=== PATIENT | female | born 1970 | race Caucasian/White ===

== ENCOUNTER 2016-11-12 20:36 | Emergency (ER) | payer MEDICARE, MEDICAID ==
[~2016-11-12] VITALS: Ht 162.6 cm; Wt 68.0 kg
[2016-11-12] MEDS ORDERED: LEVO175T2 PO (20:52)
[2016-11-12] MEDS ORDERED: VITA100066 PO (20:52)
[2016-11-12 21:37] LABS: BASO % 0.4 % (0.0-1.0); EOS # 0.2 K/mm3 (0.0-0.50); EOS % 1.5 % (0.0-3.0); LARGE UNSTAINED CELL # 0.2 K/mm3 (0.0-0.4); LARGE UNSTAINED CELL % 1.7 % (0.0-4.0); LYMPH % 17.2 % (24.0-44.0); MEAN CORPUSCULAR HEMOGLOBIN 31.2 pg (27.0-33.0); MEAN CORPUSCULAR VOLUME 91.8 fl (80.0-96.0); MONO # 0.7 K/mm3 (0.0-0.8); NEUTROPHILS # 8.3 K/mm3 (1.8-7.7); NEUTROPHILS % 73.2 % (36.0-66.0); PLATELET COUNT, AUTOMATED 255 k/mm3 (150-450); RED CELL DISTRIBUTION WIDTH 12.3 % (11.5-14.5); WHITE BLOOD COUNT 11.3 K/mm3 (4.0-10.0)
[2016-11-12 21:58] LABS: ANION GAP 6 MEQ/L (8-16); BLOOD UREA NITROGEN 9 MG/DL (7-18); CALCIUM LEVEL 7.8 MG/DL (8.5-10.1); CARBON DIOXIDE LEVEL 28 MEQ/L (21-32); CHLORIDE LEVEL 105 MEQ/L (98-107); GLOMERULAR FILTRATION RATE > 60.0 (>58); GLUCOSE, FASTING 91 MG/DL (70-105); POTASSIUM SERUM 3.9 MEQ/L (3.5-5.1); SODIUM LEVEL 139 MEQ/L (136-145)
[2016-11-12 22:20] VITALS: BP 111/61
== END 2016-11-12 22:31 | disposition home or self-care (01) ==
LOC: EDBD 20:36 → M ED 21:40
DX: E16.2 Hypoglycemia, unspecified (principal); Z98.84 Bariatric surgery status; E03.9 Hypothyroidism, unspecified

== ENCOUNTER → 2017-05-15 | Outpatient (CLI) | payer MEDICARE, MEDICAID ==
[~2017-05-15] MED LIST: LEVO175T2 PO; VITA100066 PO
[2017-05-15 14:00] LABS: FREE T4 1.2 NG/DL (0.76-1.46)
== END ==
LOC: M SMT 10:00
PROVIDERS: ATTEND Internal Medicine Endocrinology, Diabetes & Metabolism
DX: E03.9 Hypothyroidism, unspecified (principal)

== ENCOUNTER → 2017-12-03 | Outpatient (CLI) | payer MEDICARE, MEDICAID ==
[~2017-12-03] MED LIST changes: +E-Z-GAS II EFFERVESCENT PACKET (SODIUM BICARB./CITRIC ACID/SIMETHICONE) As Ordered; +E-Z-HD 98% w/w 340GM SUSP BTL As Ordered; +E-Z-PAQUE 96% w/w SUSP 176GM BTL As Ordered; -LEVO175T2 PO; -VITA100066 PO
== END ==
LOC: M RAD 10:43
DX: R10.13 Epigastric pain (principal); E66.3 Overweight; Z98.84 Bariatric surgery status
CPT/HCPCS: 74220

== ENCOUNTER 2018-07-30 09:06 | Day surgery (SDC) | payer MEDICARE, MEDICAID ==
[~2018-07-30] VITALS: Ht 162.6 cm; Wt 77.6 kg
[~2018-07-30 09:06] MED LIST changes: +ADV250INH INH; +ASCO500T PO; +AZEL1SPR3; +CALC-176 PO; +CETI10TA PO; -E-Z-GAS II EFFERVESCENT PACKET (SODIUM BICARB./CITRIC ACID/SIMETHICONE) As Ordered; -E-Z-HD 98% w/w 340GM SUSP BTL As Ordered; -E-Z-PAQUE 96% w/w SUSP 176GM BTL As Ordered; +FERR325T16 PO; +LEVO100T5 PO; +LEVO175T2 PO; +MONT10TA2 PO; +NS 1,000 ML IV ONE; +OMEP20CA3 PO; +PROAAER10 INH; +VITA100066 PO; +VITA500T53 PO
[2018-07-30] MEDS ORDERED: LIDOCAINE 2% INJ 100 MG/5 ML SDV (FOR ANES.) As Ordered ONE (09:15)
[2018-07-30] MEDS ORDERED: PROPOFOL 200 MG/20 ML VIAL As Ordered ONE ×2 (09:15→11:30)
[2018-07-30] MEDS ORDERED: fentaNYL 100 MCG/2 ML INJECTION (J3010) As Ordered ONE (10:28)
--- NOTE | 2018-07-30 11:45 | ROOR ---
Patient Name: Riya Holley Procedure Date: 07/30/2018 10:42 AM Date of : 1970 Age: 48 Room: [facility] Gender: Female Note Status: Finalized Procedure: Upper GI endoscopy Indications: Follow-up of gastric ulcer, Abnormal CT of the GI tract Providers: Doug Cordova MD Referring MD: DUSTIN WILKS DO Requesting Provider: Medicines: Monitored Anesthesia Care Complications: No immediate complications. Procedure: Pre-Anesthesia Assessment: - Prior to the procedure, a History and Physical was performed, and patient medications and allergies were reviewed. The patient is competent. The risks and benefits of the procedure and the sedation options and risks were discussed with the patient. All questions were answered and informed consent was obtained. Patient identification and proposed procedure were verified by the physician, the nurse and the anesthesiologist in the procedure room. Mental Status Examination: alert and oriented. Airway Examination: normal oropharyngeal airway and neck mobility. Respiratory Examination: clear to auscultation. CV Examination: normal. Prophylactic Antibiotics: The patient does not require prophylactic antibiotics. Prior Anticoagulants: The patient has taken no previous anticoagulant or antiplatelet agents. ASA Grade Assessment: II - A patient with mild systemic disease. After reviewing the risks and benefits, the patient was deemed in satisfactory condition to undergo the procedure. The anesthesia plan was to use monitored anesthesia care (MAC). Immediately prior to administration of medications, the patient was re-assessed for adequacy to receive sedatives. The heart rate, respiratory rate, oxygen saturations, blood pressure, adequacy of pulmonary ventilation, and response to care were monitored throughout the procedure. The physical status of the patient was re-assessed after the procedure. The Endoscope was introduced through the mouth, and advanced to the second part of duodenum. The upper GI endoscopy was accomplished without difficulty. The patient tolerated the procedure well. Findings: The Z-line was regular and was found 39 cm from the incisors. Diffuse mild inflammation characterized by erythema and granularity was found in the gastric fundus. Biopsies were taken with a cold forceps for Helicobacter pylori testing. Verification of patient identification for the specimen was done by the physician and nurse using the patient's name, date and medical record number. Estimated blood loss was minimal. Evidence of a gastric bypass was found. A gastric pouch with a medium size was found. The staple line appeared intact. The gastrojejunal anastomosis was characterized by healthy appearing mucosa. This was traversed. The jejunojejunal anastomosis was characterized by healthy appearing mucosa. The jdoukcut-pe-trmpxto limb was not examined as it could not be found. The examined jejunum was normal. Biopsies for histology were taken with a cold forceps for evaluation of celiac disease. Impression: - Z-line regular, 39 cm from the incisors. - Gastritis. Biopsied. - Gastric bypass with a medium-sized pouch and intact staple line. Gastrojejunal anastomosis characterized by healthy appearing mucosa. - Normal examined jejunum. Biopsied. Recommendation: - Patient has a contact number available for emergencies. The signs and symptoms of potential delayed complications were discussed with the patient. Return to normal activities tomorrow. Written discharge instructions were provided to the patient. - Resume previous diet. - Continue present medications. - Await pathology results. - Based on the biopsy results you will receive a phone call from GI clinic in 2-3 weeks to review the pathology results AND/OR your results will be faxed to your Primary care physician. - Return to primary care physician. Doug Cordova MD Doug Cordova MD 07/30/2018 11:44:45 AM This report has been signed electronically. Number of Addenda: 0 Note Initiated On: 07/30/2018 10:42 AM Estimated Blood Loss: Estimated blood loss was minimal.
--- NOTE | 2018-07-30 11:47 | ROOR ---
Patient Name: Riya Holley Procedure Date: 07/30/2018 10:42 AM Date of : 1970 Age: 48 Room: [facility] Gender: Female Note Status: Finalized Procedure: Colonoscopy Indications: Abnormal CT of the GI tract Providers: Doug Cordova MD Referring MD: DUSTIN WILKS DO Requesting Provider: Medicines: Monitored Anesthesia Care Complications: No immediate complications. Procedure: Pre-Anesthesia Assessment: - Prior to the procedure, a History and Physical was performed, and patient medications and allergies were reviewed. The patient is competent. The risks and benefits of the procedure and the sedation options and risks were discussed with the patient. All questions were answered and informed consent was obtained. Patient identification and proposed procedure were verified by the physician, the nurse and the anesthesiologist in the procedure room. Mental Status Examination: alert and oriented. Airway Examination: normal oropharyngeal airway and neck mobility. Respiratory Examination: clear to auscultation. CV Examination: normal. Prophylactic Antibiotics: The patient does not require prophylactic antibiotics. Prior Anticoagulants: The patient has taken no previous anticoagulant or antiplatelet agents. ASA Grade Assessment: II - A patient with mild systemic disease. After reviewing the risks and benefits, the patient was deemed in satisfactory condition to undergo the procedure. The anesthesia plan was to use monitored anesthesia care (MAC). Immediately prior to administration of medications, the patient was re-assessed for adequacy to receive sedatives. The heart rate, respiratory rate, oxygen saturations, blood pressure, adequacy of pulmonary ventilation, and response to care were monitored throughout the procedure. The physical status of the patient was re-assessed after the procedure. The Colonoscope was introduced through the anus and advanced to the terminal ileum, with identification of the appendiceal orifice and IC valve. The colonoscopy was performed without difficulty. The patient tolerated the procedure well. The quality of the bowel preparation was good. The terminal ileum, ileocecal valve, appendiceal orifice, and rectum were photographed. Scope insertion time was 5 minutes. Scope withdrawal time was 10 minutes. The total duration of the procedure was 15 minutes. Findings: The perianal and digital rectal examinations were normal. The terminal ileum appeared normal. A 4 mm polyp was found in the transverse colon. The polyp was sessile. The polyp was removed with a cold biopsy forceps. Resection and retrieval were complete. Verification of patient identification for the specimen was done by the physician and nurse using the patient's name, date and medical record number. Estimated blood loss was minimal. Two sessile polyps were found in the rectum. The polyps were 3 to 4 mm in size. These polyps were removed with a cold biopsy forceps. Resection and retrieval were complete. Non-bleeding external and internal hemorrhoids were found during retroflexion. The hemorrhoids were medium-sized. Impression: - The examined portion of the ileum was normal. - One 4 mm polyp in the transverse colon, removed with a cold biopsy forceps. Resected and retrieved. - Two 3 to 4 mm polyps in the rectum, removed with a cold biopsy forceps. Resected and retrieved. - Non-bleeding external and internal hemorrhoids. Recommendation: - Patient has a contact number available for emergencies. The signs and symptoms of potential delayed complications were discussed with the patient. Return to normal activities tomorrow. Written discharge instructions were provided to the patient. - Resume previous diet. - Continue present medications. - Await pathology results. - Repeat colonoscopy in 5-10 years for surveillance based on pathology results. - Based on the biopsy results you will receive a phone call from GI clinic in 2-3 weeks to review the pathology results AND/OR your results will be faxed to your Primary care physician. - Return to primary care physician. Doug Cordova MD Doug Cordova MD 07/30/2018 11:47:11 AM This report has been signed electronically. Number of Addenda: 0 Note Initiated On: 07/30/2018 10:42 AM Estimated Blood Loss: Estimated blood loss was minimal.
[2018-07-30 11:55] VITALS: BP 134/84
[2018-08-08] MEDS ORDERED: SUCR1SS PO (08:40)
== END 2018-07-30 12:07 | disposition home or self-care (01) ==
LOC: M OPP 09:06
PROVIDERS: ATTEND Internal Medicine Gastroenterology
DX: K64.8 Other hemorrhoids (principal); D12.3 Benign neoplasm of transverse colon; K62.1 Rectal polyp; K29.70 Gastritis, unspecified, without bleeding; K25.9 Gastric ulcer, unspecified as acute or chronic, without hemorrhage or perforation; Z98.84 Bariatric surgery status; J45.909 Unspecified asthma, uncomplicated; E03.9 Hypothyroidism, unspecified; Z79.899 Other long term (current) drug therapy
CPT/HCPCS: 43239; 45380; 88305; J3010

== ENCOUNTER → 2020-01-12 | Outpatient (CLI) | payer MEDICARE, MEDICAID ==
[~2020-01-12] MED LIST changes: +E-Z-GAS II EFFERVESCENT PACKET (SODIUM BICARB./CITRIC ACID/SIMETHICONE) As Ordered ONE; +E-Z-HD 98% w/w 340GM SUSP BTL As Ordered ONE; +E-Z-PAQUE 96% w/w SUSP 176GM BTL As Ordered ONE; -MONT10TA2 PO; +MONT10TA4 PO; -NS 1,000 ML IV ONE; +OMEP1CAP73 PO; -OMEP20CA3 PO; +SUCR1SS PO; +VITA500T17 PO; -VITA500T53 PO
--- NOTE | 2020-01-12 19:38 | REP ---
Examination Requested: Upper G.I. Series With KUB Reason For Exam: gastroesophageal reflux disease Upper GI Air Contrast The procedure was performed by KANDI Geronimo, under the direct supervision of Dr. Curiel. The images were reviewed with Dr. Curiel. 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 The intestinal gas pattern appears normal. Again noted is severe kyphoscoliosis. Liquid barium was given in the erect position as well as liquid barium in the prone oblique position in order to perform a double contrast upper GI examination. The oral and pharyngeal stages of deglutition were unremarkable. Esophageal transport is efficient and there is no esophagitis, stricture, or mucosal ring noted. There is no hiatal hernia. Gastroesophageal reflux was not visualized throughout the course of the exam. The stomach demonstrates postsurgical changes consistent with the patient's history of Lissa-en-Y gastric surgery. There is free flow of contrast through the anastomosis. There is no evidence of stricture or obstruction. There is no evidence of gastritis, neoplasm, or ulcer disease. The visualized portion of the proximal small bowel appears normal in course and caliber. Impression: 1. Unremarkable upper GI study in a patient who is status post Lissa-en-Y gastric surgery 7 years ago. 0.2 minutes of fluoroscopy time was utilized for this procedure. Some fluoroscopic images are performed with last image hold technology. These images require no additional radiation. Reviewed by KANDI Mccurdy 01/12/2020 04:52 P Electronically Signed by Kelvin Curiel MD 01/12/2020 07:29 P
== END ==
LOC: M RAD 08:13
PROVIDERS: ATTEND Surgery
DX: K21.9 Gastro-esophageal reflux disease without esophagitis (principal)

== ENCOUNTER → 2020-03-22 | Outpatient (CLI) | payer MEDICARE, MEDICAID ==
[~2020-03-22] MED LIST changes: -E-Z-GAS II EFFERVESCENT PACKET (SODIUM BICARB./CITRIC ACID/SIMETHICONE) As Ordered ONE; -E-Z-HD 98% w/w 340GM SUSP BTL As Ordered ONE; -E-Z-PAQUE 96% w/w SUSP 176GM BTL As Ordered ONE
[2020-03-22 14:22] LABS: HEMATOCRIT 41.2 % (36.0-47.0); HEMOGLOBIN 13.4 g/dl (12.0-15.5); MEAN CORPUSCULAR HEMOGLOBIN 30.4 pg (27.0-33.0); MEAN CORPUSCULAR HGB CONC 32.5 g/dl (32.0-36.5); MEAN CORPUSCULAR VOLUME 93.4 fl (80.0-96.0); PLATELET COUNT, AUTOMATED 246 10^3/uL (150-450); RED BLOOD COUNT 4.41 10^6/uL (4.00-5.40); WHITE BLOOD COUNT 5.7 10^3/uL (4.0-10.0)
[2020-03-22 14:56] LABS: FOLATE 17.1 NG/ML (>5.4); TOTAL 25(OH) VITAMIN D 26.9 NG/ML (30.0-100.0)
== END ==
LOC: M WUC 09:47
PROVIDERS: ATTEND Surgery
DX: R63.5 Abnormal weight gain (principal); Z98.84 Bariatric surgery status; Z79.899 Other long term (current) drug therapy

== ENCOUNTER → 2020-03-22 | Outpatient (CLI) | payer MEDICARE, MEDICAID ==
[2020-03-22 14:47] LABS: BLOOD UREA NITROGEN 9 MG/DL (7-18); CALCIUM LEVEL 9.1 MG/DL (8.5-10.1); CARBON DIOXIDE LEVEL 27 MEQ/L (21-32); CHLORIDE LEVEL 107 MEQ/L (98-107); FREE T4 1.24 NG/DL (0.76-1.46); GLOMERULAR FILTRATION RATE > 60.0 (>58); GLUCOSE, FASTING 57 MG/DL (70-100); POTASSIUM SERUM 4.2 MEQ/L (3.5-5.1); SODIUM LEVEL 141 MEQ/L (136-145); THYROID STIMULATING HORMONE 0.307 uIU/ML (0.358-3.740)
== END ==
LOC: M WUC 09:43
PROVIDERS: ATTEND Internal Medicine
DX: E03.8 Other specified hypothyroidism (principal); E06.3 Autoimmune thyroiditis

== ENCOUNTER → 2020-04-14 | Outpatient (CLI) | payer MEDICARE, MEDICAID ==
[2020-04-14 12:56] LABS: FREE T4 1.27 NG/DL (0.76-1.46); THYROID STIMULATING HORMONE 0.722 uIU/ML (0.358-3.740)
== END ==
LOC: M WUC 09:33
PROVIDERS: ATTEND Physician Assistant
DX: E03.8 Other specified hypothyroidism (principal); E06.3 Autoimmune thyroiditis

== ENCOUNTER 2020-05-20 07:10 | Outpatient (RCR) | payer MEDICARE, MEDICAID | END 2020-05-22 | LOC: M OT 07:10 | PROVIDERS: ATTEND Orthopaedic Surgery | DX: S62.645A Nondisplaced fracture of proximal phalanx of left ring finger, initial encounter for closed fracture (principal); X58.XXXA Exposure to other specified factors, initial encounter; Y92.89 Other specified places as the place of occurrence of the external cause ==

== ENCOUNTER 2020-06-15 08:49 | Outpatient (RCR) | payer MEDICARE, MEDICAID ==
[~2020-06-15 08:49] MED LIST changes: -MONT10TA4 PO; +MONT5TAB2 PO
== END 2020-06-21 ==
LOC: M OT 08:49
PROVIDERS: ATTEND Orthopaedic Surgery
DX: S62.645D Nondisplaced fracture of proximal phalanx of left ring finger, subsequent encounter for fracture with routine healing (principal); X58.XXXD Exposure to other specified factors, subsequent encounter; Y92.9 Unspecified place or not applicable

== ENCOUNTER 2020-07-06 08:14 | Outpatient (RCR) | payer MEDICARE, MEDICAID | END 2020-07-22 | LOC: M OT 08:14 | PROVIDERS: ATTEND Orthopaedic Surgery | DX: S62.645D Nondisplaced fracture of proximal phalanx of left ring finger, subsequent encounter for fracture with routine healing (principal) ==

== ENCOUNTER → 2021-05-09 | Outpatient (CLI) | payer MEDICARE, MEDICAID ==
[~2021-05-09] MED LIST changes: +FERR324T21 PO; -FERR325T16 PO; +MONT10TA10 PO; -MONT5TAB2 PO
--- NOTE | 2021-05-09 15:06 | DEXAMM ---
INDICATION: POST BARIATRIC SURGERY SURVEILLANCE. COMPARISON: None. TECHNIQUE: Bone density was measured using dual-energy x-ray absorptiometry (DEXA). FINDINGS: AP SPINE L1-L4 BMD 1.379 g/cm2 Young Adult T-Score 1.5 Age Matched Z-Score 1.8. LT FEMUR, TOTAL BMD 0.906 g/cm2 Young Adult T-Score -0.8 Age Matched Z-Score -0.4. LT NECK BMD 0.905 g/cm2 Young Adult T-Score -1.0 Age Matched Z-Score -0.2. RT FEMUR, TOTAL BMD 0.890 g/cm2 Young Adult T-Score -0.9 Age Matched Z-Score -0.5. RT NECK BMD 0.910 g/cm2 Young Adult T-Score -0.9 Age Matched Z-Score -0.2. IMPRESSION: There is normal bone density of the spine. There is low bone density of the left hip. There is normal bone density of the right hip. FOLLOW-UP: Recommendation for the next bone density exam: 2 years. <Electronically signed by Kelvin Curiel > 05/09/21 [id number]
== END ==
LOC: M WHC 13:14
PROVIDERS: ATTEND Registered Nurse
DX: K28.9 Gastrojejunal ulcer, unspecified as acute or chronic, without hemorrhage or perforation (principal); I10 Essential (primary) hypertension; E66.3 Overweight; K91.2 Postsurgical malabsorption, not elsewhere classified; E03.8 Other specified hypothyroidism; E06.3 Autoimmune thyroiditis; E61.1 Iron deficiency; E55.9 Vitamin D deficiency, unspecified; E53.8 Deficiency of other specified B group vitamins; Z98.84 Bariatric surgery status

== ENCOUNTER → 2021-05-09 | Outpatient (CLI) | payer MEDICARE, MEDICAID ==
[2021-05-09 11:07] LABS: FREE T4 1.3 NG/DL (0.76-1.46); THYROID STIMULATING HORMONE 1.47 uIU/ML (0.358-3.740)
== END ==
LOC: M WUC 08:34
PROVIDERS: ATTEND Physician Assistant
DX: E03.8 Other specified hypothyroidism (principal); E06.3 Autoimmune thyroiditis; K28.9 Gastrojejunal ulcer, unspecified as acute or chronic, without hemorrhage or perforation; I10 Essential (primary) hypertension; E66.3 Overweight; K91.2 Postsurgical malabsorption, not elsewhere classified; E61.1 Iron deficiency; E55.9 Vitamin D deficiency, unspecified; E53.8 Deficiency of other specified B group vitamins; M85.89 Other specified disorders of bone density and structure, multiple sites; Z98.84 Bariatric surgery status

== ENCOUNTER → 2021-07-27 | Outpatient (CLI) | payer MEDICARE ==
[2021-07-27 16:11] LABS: ALBUMIN 3.6 GM/DL (3.2-5.2); ALT/SGPT 25 U/L (12-78); BILIRUBIN,TOTAL 0.7 MG/DL (0.2-1.0); BLOOD UREA NITROGEN 12 MG/DL (7-18); CALCIUM LEVEL 9.1 MG/DL (8.5-10.1); CARBON DIOXIDE LEVEL 27 MEQ/L (21-32); CHLORIDE LEVEL 106 MEQ/L (98-107); CREATININE FOR GFR 0.68 MG/DL (0.55-1.30); GLOMERULAR FILTRATION RATE > 60.0 (>58); GLUCOSE, FASTING 97 MG/DL (70-100); POTASSIUM SERUM 4.4 MEQ/L (3.5-5.1); SODIUM LEVEL 140 MEQ/L (136-145); TOTAL PROTEIN 7.2 GM/DL (6.4-8.2)
== END ==
LOC: M PLALAB 13:58
PROVIDERS: ATTEND Registered Nurse
DX: E66.9 Obesity, unspecified (principal); K90.9 Intestinal malabsorption, unspecified; Z98.84 Bariatric surgery status

== ENCOUNTER → 2022-03-31 | Outpatient (CLI) | payer MEDICARE, MEDICAID ==
[~2022-03-31] MED LIST changes: -MONT10TA10 PO; +MONT10TA97 PO
== END ==
LOC: M PLALAB 10:30
PROVIDERS: ATTEND Physician Assistant
DX: E03.8 Other specified hypothyroidism (principal); E06.3 Autoimmune thyroiditis

== ENCOUNTER → 2022-04-25 | Outpatient (CLI) | payer MEDICARE, MEDICAID ==
[2022-04-25 07:58] LABS: BASO # 0.1 10^3/uL (0.0-0.2); BASO % 0.8 % (0.0-1.0); EOS # 0.2 10^3/uL (0.0-0.5); EOS % 3.5 % (0.0-3.0); HEMOGLOBIN 12.5 g/dl (12.0-15.5); LYMPH % 32.4 % (24.0-44.0); MEAN CORPUSCULAR HEMOGLOBIN 29.6 pg (27.0-33.0); MEAN CORPUSCULAR HGB CONC 32.1 g/dl (32.0-36.5); MEAN CORPUSCULAR VOLUME 92.4 fl (80.0-96.0); MONO # 0.6 10^3/uL (0.0-0.8); MONO % 9.1 % (2.0-8.0); NEUTROPHILS # 3.3 10^3/uL (1.5-8.5); PLATELET COUNT, AUTOMATED 252 10^3/uL (150-450); RED BLOOD COUNT 4.22 10^6/uL (4.00-5.40)
[2022-04-25 08:16] LABS: HEMOGLOBIN A1c 5.3 %
[2022-04-25 08:38] LABS: ALBUMIN 3.6 GM/DL (3.2-5.2); ALT/SGPT 27 U/L (12-78); BLOOD UREA NITROGEN 12 MG/DL (7-18); CALCIUM LEVEL 8.7 MG/DL (8.5-10.1); CARBON DIOXIDE LEVEL 32 MEQ/L (21-32); CHLORIDE LEVEL 103 MEQ/L (98-107); CHOLESTEROL LEVEL 145 MG/DL (<200); CHOLESTEROL RISK RATIO 1.907 (<5); CREATININE FOR GFR 0.76 MG/DL (0.55-1.30); FERRITIN 32 NG/ML (8-252); GLOMERULAR FILTRATION RATE > 60.0 (>58); GLUCOSE, FASTING 94 MG/DL (70-100); HDL CHOLESTEROL 76 MG/DL (>40); IRON (FE) 89 UG/DL (50-170); LDL CHOLESTEROL 59 MG/DL (<100); NON-HDL-C 69 MG/DL; PERCENT SATURATION 27.4 % (13.2-45.0); POTASSIUM SERUM 3.9 MEQ/L (3.5-5.1); SODIUM LEVEL 138 MEQ/L (136-145); TOTAL IRON BINDING CAPACITY 325 UG/DL (250-450); TOTAL PROTEIN 7.1 GM/DL (6.4-8.2); TRIGLYCERIDES LEVEL 49 MG/DL (<150)
[2022-04-25 14:15] LABS: TOTAL 25(OH) VITAMIN D 36.4 NG/ML (30.0-100.0)
[2022-04-25 14:16] LABS: VITAMIN B12 LEVEL 314 PG/ML (247-911)
== END ==
LOC: M LAB 07:03
PROVIDERS: ATTEND Registered Nurse
DX: E66.3 Overweight (principal); Z98.84 Bariatric surgery status; Z68.25 Body mass index [BMI] 25.0-25.9, adult

== ENCOUNTER → 2022-11-06 | Outpatient (CLI) | payer MEDICARE, MEDICAID ==
[2022-11-06 10:45] LABS: HEMATOCRIT 38.3 % (36.0-47.0); HEMOGLOBIN 12.4 g/dl (12.0-15.5); MEAN CORPUSCULAR HEMOGLOBIN 30.8 pg (27.0-33.0); MEAN CORPUSCULAR HGB CONC 32.4 g/dl (32.0-36.5); PLATELET COUNT, AUTOMATED 248 10^3/uL (150-450); RED BLOOD COUNT 4.03 10^6/uL (4.00-5.40); WHITE BLOOD COUNT 5.6 10^3/uL (4.0-10.0)
[2022-11-06 11:06] LABS: BLOOD UREA NITROGEN 12 MG/DL (9-23); CARBON DIOXIDE LEVEL 30 MMOL/L (20-31); CHLORIDE LEVEL 108 MMOL/L (98-107); CREATININE FOR GFR 0.67 MG/DL (0.55-1.30); GLOMERULAR FILTRATION RATE > 60.0 (>51); GLUCOSE, FASTING 88 MG/DL (60-100); POTASSIUM SERUM 4.8 MMOL/L (3.5-5.1); SODIUM LEVEL 141 MMOL/L (136-145)
[2022-11-06 12:21] LABS: FREE T4 0.98 NG/DL (0.89-1.76)
== END ==
LOC: M PLALAB 08:33
PROVIDERS: ATTEND Plastic Surgery Surgery of the Hand
DX: M54.07 Panniculitis affecting regions of neck and back, lumbosacral region (principal)

== ENCOUNTER 2022-11-20 05:59 | Observation (INO) | payer MEDICARE, MEDICAID ==
[2022-11-20] VITALS (7 sets, daily range): BP systolic 119–138; BP diastolic 71–75
[~2022-11-20] VITALS: Ht 165.1 cm; Wt 86.4 kg
[~2022-11-20 05:59] MED LIST changes: +PROA1AER2 INH; +VITA100093 PO
[2022-11-20] MEDS ORDERED: LR 1,000 ML IV SCH (06:20)
[2022-11-20] MEDS ORDERED: ceFAZolin SOD 2 GM in IV 1 EA IV ONE (06:45)
[2022-11-20] MEDS ORDERED: HEPARIN SOD (PORCINE) 5000UNITS/ML 1ML VIAL/SYRINGE SQ ONE (06:45)
[2022-11-20] MEDS ORDERED: BUPIVACAINE HCL 0.25% 30ML VIAL As Ordered ONE (07:16)
[2022-11-20] MEDS ORDERED: BUPIVACAINE LIPOSOME/PF 1.3% 20ML VIAL (13.3MG/ML)(EXPAREL) As Ordered ONE (07:17)
[2022-11-20] MEDS ORDERED: GENTAMICIN SULF 80MG/2ML VIAL As Ordered ONE (07:17)
[2022-11-20] MEDS ORDERED: propofoL 200 MG/20 ML VIAL As Ordered ONE (07:19)
[2022-11-20] MEDS ORDERED: LIDOCAINE 2% 100MG/5ML SDV (FOR ANES.) As Ordered ONE (07:19)
[2022-11-20] MEDS ORDERED: fentaNYL 100 MCG/2 ML INJECTION As Ordered ONE (07:19)
[2022-11-20] MEDS ORDERED: MIDAZOLAM INJ 2MG/2ML VIAL As Ordered ONE (07:19)
[2022-11-20] MEDS ORDERED: ROCURONIUM BROMIDE 50MG/5ML VIAL As Ordered ONE ×2 (07:19→08:09)
[2022-11-20] MEDS ORDERED: HYDROmorphone HCL 2MG/ML 1ML VIAL As Ordered ONE (08:09)
[2022-11-20] MEDS ORDERED: ONDANSETRON 4MG 2ML VIAL As Ordered ONE (08:26)
[2022-11-20] MEDS ORDERED: SUGAMMADEX SODIUM 500 MG/5 ML VIAL (BRIDION) As Ordered ONE (08:26)
[2022-11-20] MEDS ORDERED: ACETAMINOPHEN 1000MG 100ML IV BAG As Ordered ONE (08:26)
[2022-11-20] MEDS ORDERED: METOCLOPRAMIDE INJ 10MG/2ML VIAL As Ordered ONE (08:26)
[2022-11-20] MEDS ORDERED: KETOROLAC 60MG 2ML VIAL As Ordered ONE (08:26)
[2022-11-20] MEDS ORDERED: ePHEDrine SULFATE 25 MG/5 ML(5MG/ML) SYRINGE As Ordered ONE (09:01)
[2022-11-20] MEDS ORDERED: ONDANSETRON 4MG 2ML VIAL IV PRN ×2 (10:50→11:00)
[2022-11-20] MEDS ORDERED: oxyCODONE 5MG TAB PO PRN ×2 (10:50→11:00)
[2022-11-20] MEDS ORDERED: fentaNYL 100 MCG/2 ML INJECTION IV PRN (10:50)
[2022-11-20] MEDS ORDERED: HYDROMORPHONE HCL 0.5 MG/ 0.5 ML SYRINGE IV PRN (10:50)
[2022-11-20] MEDS ORDERED: traMADol 50 MG TAB PO PRN (11:00)
[2022-11-20] MEDS ORDERED: ACETAMINOPHEN TAB 650MG DOSE (2X325MG) PO PRN (11:00)
[2022-11-20] MEDS: LR 1,000 ML IV SCH (11:56)
[2022-11-20] MEDS: CETIRIZINE (ZyrTEC) 10 MG TAB PO SCH (11:57)
[2022-11-20] MEDS: CYANOCOBALAMIN 500 MCG TAB PO SCH (11:57)
[2022-11-20] MEDS: LEVOTHYROXINE 100MCG TABLET (0.1MG) PO SCH (11:57)
[2022-11-20] MEDS: ASCORBIC ACID 500 MG TAB PO SCH ×2 (16:13→20:19)
[2022-11-20] MEDS: ceFAZolin SOD 1 GM in D5W MINI-BAG PLUS 50 ML IV SCH (16:13)
[2022-11-20] MEDS: FERROUS GLUCONATE 324 MG TAB PO SCH (20:20)
[2022-11-20] MEDS ORDERED: MONTELUKAST 10 MG TAB PO SCH (21:00)
[2022-11-21] MEDS: ceFAZolin SOD 1 GM in D5W MINI-BAG PLUS 50 ML IV SCH ×2 (00:36→08:00)
[2022-11-21 02:00] VITALS: BP 122/74
[2022-11-21] MEDS: LEVOTHYROXINE 100MCG TABLET (0.1MG) PO SCH (05:29)
[2022-11-21] MEDS: LR 1,000 ML IV SCH (05:32)
[2022-11-21 05:53] VITALS: BP 125/76
[2022-11-21] MEDS: CYANOCOBALAMIN 500 MCG TAB PO SCH (08:24)
[2022-11-21] MEDS: ASCORBIC ACID 500 MG TAB PO SCH (08:24)
[2022-11-21] MEDS: FERROUS GLUCONATE 324 MG TAB PO SCH (08:24)
[2022-11-21] MEDS: CETIRIZINE (ZyrTEC) 10 MG TAB PO SCH (08:24)
[2022-11-21] MEDS ORDERED: TRAM50TA2 PO (10:56)
== END 2022-11-21 13:10 | disposition home health service (06) ==
LOC: M SDC 05:59 → M MS5PR 06:00
PROVIDERS: ADMIT Plastic Surgery Surgery of the Hand; ATTEND Plastic Surgery Surgery of the Hand
DX: M54.07 Panniculitis affecting regions of neck and back, lumbosacral region (principal); Z98.84 Bariatric surgery status; Z79.51 Long term (current) use of inhaled steroids; Z79.899 Other long term (current) drug therapy; J45.909 Unspecified asthma, uncomplicated; E03.9 Hypothyroidism, unspecified; M41.9 Scoliosis, unspecified
CPT/HCPCS: 15830; 15847; 88302; 96365; 96366; C9290; G0378; J0131; J0690; J1100; J1170; J1580; J1885; J2250; J2405; J2765; J3010

== ENCOUNTER → 2024-02-21 | Outpatient (CLI) | payer MEDICARE, MEDICAID ==
[~2024-02-21] MED LIST changes: +TRAM50TA2 PO
[2024-02-21 16:21] LABS: APPEARANCE, URINE CLEAR (CLEAR); BACTERIA, URINE AUTO NEGATIVE (NEGATIVE); BILIRUBIN, URINE AUTO NEGATIVE (NEGATIVE); BLOOD, URINE BLOOD NEGATIVE (NEGATIVE); COLOR, URINE YELLOW (YELLOW); GLUCOSE, URINE (UA) AUTO NEGATIVE (NEGATIVE); KETONE, URINE AUTO NEGATIVE (NEGATIVE); LEUKOCYTE ESTERASE, URINE AUTO NEGATIVE (NEGATIVE); MUCUS, URINE SMALL (NEGATIVE); NITRITE, URINE AUTO NEGATIVE (NEGATIVE); PROTEIN, URINE AUTO NEGATIVE (NEGATIVE); RBC, URINE AUTO 1 /HPF (0-3); SPECIFIC GRAVITY URINE AUTO 1.011 (1.002-1.035); SQUAMOUS EPITHELIAL CELL UR AU 1 /HPF (0-6); UROBILINOGEN, URINE AUTO 0.2 mg/dL (0.0-2.0); WBC, URINE AUTO 1 /HPF (0-3)
[2024-02-21 16:23] LABS: BASO # 0.1 10^3/uL (0.0-0.2); EOS # 0.2 10^3/uL (0.0-0.5); EOS % 3.1 % (0.0-3.0); HEMATOCRIT 39.4 % (36.0-47.0); HEMOGLOBIN 12.6 g/dl (12.0-15.5); LYMPH # 2.7 10^3/uL (1.5-5.0); MEAN CORPUSCULAR HEMOGLOBIN 30.1 pg (27.0-33.0); MONO # 0.6 10^3/uL (0.0-0.8); MONO % 10.3 % (2.0-8.0); NEUTROPHILS # 2.5 10^3/uL (1.5-8.5); NEUTROPHILS % 41.4 % (36.0-66.0); PLATELET COUNT, AUTOMATED 261 10^3/uL (150-450); RED BLOOD COUNT 4.19 10^6/uL (4.00-5.40); WHITE BLOOD COUNT 6.1 10^3/uL (4.0-10.0)
[2024-02-21 16:30] LABS: ALBUMIN 3.8 G/DL (3.2-5.2); ALKALINE PHOSPHATASE 93 U/L (46-116); ALT/SGPT 26 U/L (7.0-40); AST/SGOT 21 U/L (<34); BLOOD UREA NITROGEN 8 MG/DL (9-23); CALCIUM LEVEL 9.2 MG/DL (8.5-10.1); CARBON DIOXIDE LEVEL 30 MMOL/L (20-31); CHLORIDE LEVEL 105 MMOL/L (98-107); CREATININE FOR GFR 0.62 MG/DL (0.55-1.30); GLOMERULAR FILTRATION RATE > 60.0 (>51); GLUCOSE, FASTING 121 MG/DL (60-100); POTASSIUM SERUM 3.6 MMOL/L (3.5-5.1); SODIUM LEVEL 140 MMOL/L (136-145); TOTAL PROTEIN 7.1 G/DL (5.7-8.2)
[2024-02-21 16:32] LABS: TOTAL 25(OH) VITAMIN D 32.2 NG/ML (20.0-100.0)
[2024-02-21 16:33] LABS: THYROID STIMULATING HORMONE 0.903 uIU/ML (0.55-4.78)
== END ==
LOC: M WUC 11:23
PROVIDERS: ATTEND Family Medicine
DX: K21.9 Gastro-esophageal reflux disease without esophagitis (principal); E03.9 Hypothyroidism, unspecified; Z98.84 Bariatric surgery status

== ENCOUNTER 2024-03-21 08:05 | Day surgery (SDC) | payer MEDICARE, MEDICAID ==
[~2024-03-21] VITALS: Ht 165.1 cm; Wt 79.5 kg
[2024-03-21] MEDS: NS 1,000 ML IV ONE (09:15)
[2024-03-21] MEDS ORDERED: LIDOCAINE 2% 100MG/5ML SDV (FOR ANES.) As Ordered ONE (10:43)
[2024-03-21] MEDS ORDERED: propofoL 200 MG/20 ML VIAL As Ordered ONE (10:43)
[2024-03-21 11:28] VITALS: BP 123/82; TEMP 97.5; O2SAT 100
== END 2024-03-21 11:35 | disposition home or self-care (01) ==
LOC: M OPP 08:05
PROVIDERS: ATTEND Internal Medicine Gastroenterology
DX: Z86.010 Personal history of colon polyps (principal); Z80.0 Family history of malignant neoplasm of digestive organs; E03.9 Hypothyroidism, unspecified; G47.30 Sleep apnea, unspecified; Z79.51 Long term (current) use of inhaled steroids; Z79.52 Long term (current) use of systemic steroids; Z79.890 Hormone replacement therapy; Z79.899 Other long term (current) drug therapy; Z98.84 Bariatric surgery status

== ENCOUNTER → 2024-04-21 | Outpatient (CLI) | payer MEDICARE, MEDICAID ==
[2024-04-21 13:39] LABS: HEMATOCRIT 36.9 % (36.0-47.0); HEMOGLOBIN 11.9 g/dl (12.0-15.5); MEAN CORPUSCULAR HGB CONC 32.2 g/dl (32.0-36.5); MEAN CORPUSCULAR VOLUME 92.9 fl (80.0-96.0); PLATELET COUNT, AUTOMATED 241 10^3/uL (150-450); RED BLOOD COUNT 3.97 10^6/uL (4.00-5.40); WHITE BLOOD COUNT 5.4 10^3/uL (4.0-10.0)
[2024-04-21 14:16] LABS: HEMOGLOBIN A1c 5.1 % (4.0-6.0)
[2024-04-21 14:19] LABS: ALBUMIN 3.6 G/DL (3.2-5.2); ALKALINE PHOSPHATASE 87 U/L (46-116); ALT/SGPT 23 U/L (7.0-40); AST/SGOT 20 U/L (<34); BLOOD UREA NITROGEN 10 MG/DL (9-23); CALCIUM LEVEL 9.2 MG/DL (8.5-10.1); CARBON DIOXIDE LEVEL 28 MMOL/L (20-31); CHLORIDE LEVEL 106 MMOL/L (98-107); CHOLESTEROL LEVEL 146 MG/DL (<200); CHOLESTEROL RISK RATIO 2.18 (<5); CREATININE FOR GFR 0.64 MG/DL (0.55-1.30); GLOMERULAR FILTRATION RATE > 60.0 (>51); GLUCOSE, FASTING 90 MG/DL (60-100); HDL CHOLESTEROL 66.9 MG/DL (>40); IRON (FE) 92 UG/DL (50-170); LDL CHOLESTEROL 71.1 MG/DL (<100); NON-HDL-C 79.1 MG/DL; PERCENT SATURATION 30.4 % (13.2-45.0); POTASSIUM SERUM 4.3 MMOL/L (3.5-5.1); SODIUM LEVEL 138 MMOL/L (136-145); TOTAL IRON BINDING CAPACITY 303 UG/DL (250-425); TRIGLYCERIDES LEVEL 40 MG/DL (<150)
[2024-04-21 14:20] LABS: TOTAL 25(OH) VITAMIN D 35.4 NG/ML (20.0-100.0)
[2024-04-21 14:21] LABS: FERRITIN 25.4 NG/ML (7.3-270.7); VITAMIN B12 LEVEL 387 PG/ML (211-911)
[2024-04-23 19:17] LABS: COPPER PLASMA 125 mcg/dL (70-175); ZINC PLASMA 69 mcg/dL (60-130)
[2024-04-24 18:58] LABS: VITAMIN A, RETINOL LEVEL 39 mcg/dL (38-98)
[2024-04-27 18:12] LABS: VITAMIN B1 LEVEL WHOLE BLOOD 62 nmol/L (78-185)
== END ==
LOC: M LAB 11:52
PROVIDERS: ATTEND Physician Assistant
DX: E44.0 Moderate protein-calorie malnutrition (principal); Z98.84 Bariatric surgery status; Z79.899 Other long term (current) drug therapy

== ENCOUNTER 2024-05-20 16:29 | Emergency (ER) | payer MEDICAID, MEDICARE, OTHER ==
[~2024-05-20] VITALS: Ht 165.1 cm; Wt 79.7 kg
[2024-05-20 18:43] VITALS: BP 123/81; O2SAT 95
[2024-05-20] MEDS: KETOROLAC 30 MG/ML 1ML VIAL IM ONE (18:49)
[2024-05-20 19:26] VITALS: TEMP 100.2
== END 2024-05-20 19:27 | disposition home or self-care (01) ==
LOC: M ED 16:29
DX: B34.8 Other viral infections of unspecified site (principal); B34.1 Enterovirus infection, unspecified; J45.909 Unspecified asthma, uncomplicated; Z98.84 Bariatric surgery status; Z79.52 Long term (current) use of systemic steroids; Z79.899 Other long term (current) drug therapy
CPT/HCPCS: 87486; 87581; 87633; 87798; 96372; 99283; J1885

== ENCOUNTER → 2024-06-30 | Outpatient (CLI) | payer MEDICARE, OTHER ==
[~2024-06-30] MED LIST changes: -ADV250INH INH; +ADVA1AER9 INH
== END ==
LOC: M WHC 08:06
PROVIDERS: ATTEND Family Medicine
DX: Z12.31 Encounter for screening mammogram for malignant neoplasm of breast (principal)

== ENCOUNTER → 2024-07-28 | Outpatient (CLI) | payer MEDICARE, OTHER | LOC: M WHC 12:54 | PROVIDERS: ATTEND Family Medicine | DX: R92.2 Inconclusive mammogram (principal); R92.321 Mammographic fibroglandular density, right breast | CPT/HCPCS: 77065; G0279 ==

== ENCOUNTER → 2024-08-28 | Outpatient (CLI) | payer MEDICARE, OTHER ==
[2024-08-28 14:12] LABS: APPEARANCE, URINE CLEAR (CLEAR); BACTERIA, URINE AUTO NEGATIVE (NEGATIVE); BILIRUBIN, URINE AUTO NEGATIVE (NEGATIVE); BLOOD, URINE BLOOD NEGATIVE (NEGATIVE); COLOR, URINE STRAW (YELLOW); GLUCOSE, URINE (UA) AUTO NEGATIVE (NEGATIVE); KETONE, URINE AUTO NEGATIVE (NEGATIVE); LEUKOCYTE ESTERASE, URINE AUTO NEGATIVE (NEGATIVE); NITRITE, URINE AUTO NEGATIVE (NEGATIVE); PROTEIN, URINE AUTO NEGATIVE (NEGATIVE); RBC, URINE AUTO 0 /HPF (0-3); SPECIFIC GRAVITY URINE AUTO 1.003 (1.002-1.035); SQUAMOUS EPITHELIAL CELL UR AU 0 /HPF (0-6); UROBILINOGEN, URINE AUTO 0.2 mg/dL (0.0-2.0); WBC, URINE AUTO 0 /HPF (0-3)
[2024-08-28 14:18] LABS: BASO # 0.1 10^3/uL (0.0-0.2); BASO % 1.2 % (0.0-1.0); EOS # 0.3 10^3/uL (0.0-0.5); EOS % 4.4 % (0.0-3.0); HEMATOCRIT 41.3 % (36.0-47.0); HEMOGLOBIN 13.1 g/dl (12.0-15.5); LYMPH # 2.3 10^3/uL (1.5-5.0); LYMPH % 39.6 % (24.0-44.0); MEAN CORPUSCULAR HEMOGLOBIN 29.4 pg (27.0-33.0); MEAN CORPUSCULAR HGB CONC 31.7 g/dl (32.0-36.5); MEAN CORPUSCULAR VOLUME 92.6 fl (80.0-96.0); MONO # 0.6 10^3/uL (0.0-0.8); MONO % 10.5 % (2.0-8.0); NEUTROPHILS # 2.6 10^3/uL (1.5-8.5); PLATELET COUNT, AUTOMATED 283 10^3/uL (150-450); RED BLOOD COUNT 4.46 10^6/uL (4.00-5.40); WHITE BLOOD COUNT 5.9 10^3/uL (4.0-10.0)
[2024-08-28 14:48] LABS: ALBUMIN 3.9 G/DL (3.2-5.2); ALKALINE PHOSPHATASE 89 U/L (35-104); ALT/SGPT 25 U/L (7.0-40); AST/SGOT 20 U/L (<34); BILIRUBIN,TOTAL 0.9 MG/DL (0.3-1.2); BLOOD UREA NITROGEN 11 MG/DL (9-23); CARBON DIOXIDE LEVEL 32 MMOL/L (20-31); CHLORIDE LEVEL 104 MMOL/L (98-107); CREATININE FOR GFR 0.63 MG/DL (0.55-1.30); GLOMERULAR FILTRATION RATE > 60.0 (>51); POTASSIUM SERUM 4.3 MMOL/L (3.5-5.1); SODIUM LEVEL 144 MMOL/L (136-145); TOTAL PROTEIN 7.6 G/DL (5.7-8.2)
[2024-08-28 14:50] LABS: THYROID STIMULATING HORMONE 0.601 uIU/ML (0.55-4.78)
[2024-08-29 07:11] LABS: GLUCOSE, FASTING 86 MG/DL (60-100)
== END ==
LOC: M WUC 10:43
PROVIDERS: ATTEND Family Medicine
DX: E03.9 Hypothyroidism, unspecified (principal); K21.9 Gastro-esophageal reflux disease without esophagitis; J45.30 Mild persistent asthma, uncomplicated

== ENCOUNTER → 2024-09-08 | Outpatient (CLI) | payer MEDICARE, OTHER | LOC: M PLAIMG 14:16 | PROVIDERS: ATTEND Physician Assistant | DX: M67.833 Other specified disorders of tendon, right wrist (principal); S63.391A Traumatic rupture of other ligament of right wrist, initial encounter ==